=== PATIENT | female | born 1955 | race Caucasian/White ===

== ENCOUNTER 2019-02-02 20:53 | Emergency (ER) | payer MEDICAID ==
[~2019-02-02] VITALS: Ht 162.6 cm; Wt 58.0 kg
[~2019-02-02 20:53] MED LIST: SULF1TAB24 PO; ZOLP-413 PO
--- NOTE | 2019-02-02 20:54 | NUR ---
PT BIB [facility] TONIGHT AFTER SHE DEVELOPED MODERATE BLEEDING DURING INTERCOURSE WITH HER. PT STATES SHE HAS HAD SIMILAR BEFORE AND REQUIRED A BLOOD TRANSFUSION LAST TIME SHE WAS SEEN. 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 PT RESTING IN [facility] AT THIS TIME IN GOWN; NADN. VSS. PT EDUCATED ON ER PROCESS AND VERBALIZES UNDERSTANDING. CALL LIGHT IS WITHIN REACH. PT DENIES ANY NEEDS AT THIS TIME. AWAITING ERP.
[2019-02-02 20:59] VITALS: BP 102/68
--- NOTE | 2019-02-02 21:11 | NUR ---
DR. PARHAM AT FOR PT HISTORY AND ASSESSMENT.
--- NOTE | 2019-02-02 22:07 | NUR ---
PT ASLEEP IN [facility] AT THIS TIME;
[2019-02-02 22:27] LABS: BASOPHILS # (AUTO) 0.06 x10^3/uL (0-0.1); BASOPHILS % (AUTO) 1 % (0-1); EOSINOPHILS # (AUTO) 0.16 x10^3/uL (0-0.4); EOSINOPHILS % (AUTO) 2 % (1-7); LYMPHOCYTES # (AUTO) 1.91 x10^3/uL (1-3.4); LYMPHOCYTES % (AUTO) 18 % (22-44); MD NO; MEAN CORPUSCULAR HEMOGLOBIN 31.5 pg (27.0-34.8); MEAN CORPUSCULAR HGB CONC 34.2 g/dL (32.4-35.8); MEAN CORPUSCULAR VOLUME 92.2 fL (80-100); MEAN PLATELET VOLUME 7.6 fL (7.4-10.4); MONOCYTES # (AUTO) 0.39 x10^3/uL (0.2-0.8); MONOCYTES % (AUTO) 4 % (2-9); NEUTROPHILS # (AUTO) 8.41 x10^3/uL (1.8-6.8); NEUTROPHILS % (AUTO) 77 % (42-75); PLATELET COUNT 168 x10^3/uL (130-400); RED BLOOD COUNT 3.72 x10^6/uL (3.82-5.3); RED CELL DISTRIBUTION WIDTH 13.7 % (9.6-15.2)
== END 2019-02-02 23:10 | disposition home or self-care (01) ==
LOC: ED 23:04
DX: N93.0 Postcoital and contact bleeding (principal); E78.00 Pure hypercholesterolemia, unspecified; Z90.710 Acquired absence of both cervix and uterus
CPT/HCPCS: 36415; 85025; 99283